=== PATIENT | female | born 1990 | race Caucasian/White ===

== ENCOUNTER 2019-07-04 13:08 | Emergency (ER) | payer BC ==
[2019-07-04 13:29] VITALS: BP 118/77
[2019-07-04] MEDS ORDERED: Tetan/Diph/Pertus SYR(Tdap)* 0.5 ML SYR(BOOSTRIX) use SYR IM ONE (13:44)
[2019-07-04] MEDS ORDERED: Amoxicillin/Clavulanate TAB* 875 MG PO ONE (13:45)
--- NOTE | 2019-07-04 13:46 | UC ---
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 last tetanus was over 5 years ago. the fish hook is used. - History of Current Complaint Chief Complaint: UCForeignBody Stated Complaint: FISH HOOK RIGHT MIDDLE FINGER Time Seen by Provider: 07/04/19 13:24 Hx Obtained From: Patient Hx Last Menstrual Period: mirena Onset/Duration: Sudden Onset Timing: Constant Pain Intensity: 4 - Allergy/Home Medications Allergies/Adverse Reactions: Allergies Allergy/AdvReac Type Severity Reaction Status Date / Time No Known Allergies Allergy Verified 07/04/19 13:29 Home Medications: Home Medications Ibuprofen 600 mg PO Q6HR PRN 07/04/19 [History Confirmed 07/04/19] PMH/Surg Hx/FS Hx/Imm Hx Previously Healthy: Yes - Surgical History Surgical History: None - Family History Known Family History: Positive: Non-Contributory - Social History Lives: With Family Alcohol Use: Occasionally Substance Use Type: None Smoking Status (MU): Never Smoked Tobacco Review of Systems All Other Systems Reviewed And Are Negative: No Constitutional: Negative: Fever Skin: Negative: Rash Musculoskeletal: Negative: Decreased ROM Neurological: Negative: Weakness, Paresthesia, Numbness Physical Exam Triage Information Reviewed: Yes Appearance: Well-Appearing Vital Signs: Initial Vital Signs Temp 97.4 F 07/04/19 13:25 Pulse 76 07/04/19 13:25 Resp 16 07/04/19 13:25 BP 118/77 07/04/19 13:25 Pulse Ox 99 07/04/19 13:25 Vital Signs Reviewed: Yes Musculoskeletal: Positive: Other: - R hand: tip of middle finger has a single fish hook in very tip. no redness or swelling. hook is superficial. finger has full s/v/m function. rest of hand is unremarkable. Neurological: Positive: Alert Psychological: Positive: Age Appropriate Behavior Skin Exam: Normal Course/Dx - Course Course Of Treatment: PROCEDURE: PT DECLINED LIDOCAINE. SITE PREP BETADINE. 18G NEEDLE PLACED OVER DISTAL END OF FISH LEVY WHERE IT CAME BACK OUT OF THE SKIN. THE HOOK SLIPPED BACK OUT EASILY. SITE WASHED WITH SOAP AND WATER. ANTIBIOTIC APPLIED TO SITE THEN BAND AIDE APPLIED. NO BLEEDING. PT TOLERATED WELL. S/V/M INTACT AFTER. WILL UPDATE TETANUS SINCE > 5 YEARS OLD AND THIS IS A USED FISH HOOK AND IT IS A PW. WILL TX WITH AUGMENTIN WELL TO PREVENT INFECTION. - Diagnoses Provider Diagnosis: Fish hook injury of finger Discharge - Sign-Out/Discharge Documenting (check all that apply): Patient Departure All imaging exams completed and their final reports reviewed: No Studies - Discharge Plan Condition: Stable Disposition: HOME Prescriptions: Amoxicillin/Clavulanate TAB* [Augmentin TAB 875*] 875 mg PO BID 5 Days #10 tab Patient Education Materials: Soft Tissue Foreign Body (ED) Referrals: David Barfield [Primary Care Provider] - If Needed - Billing Disposition and Condition Condition: STABLE Disposition: Home
== END 2019-07-04 13:54 | disposition home or self-care (01) ==
LOC: UCCORT 13:08
DX: S61.242A Puncture wound with foreign body of right middle finger without damage to nail, initial encounter (principal); X58.XXXA Exposure to other specified factors, initial encounter; Y92.9 Unspecified place or not applicable; Z23 Encounter for immunization
CPT/HCPCS: 90471; 90715; 99212; A9270-GY; G0463